=== PATIENT | female | born 1975 ===

== ENCOUNTER → 2018-09-10 13:55 | Outpatient (REF) | payer OTHER, SELFPAY ==
[2018-09-10 14:40] LABS: Free T3, Triiodothyronine Free 2.79 pg/mL (2.77-5.27); Free T4, Direct Thyroxine 1.03 ng/dL (0.78-2.19); T4 Total Thyroxine 7.76 ug/dL (5.5-11.0); T7 (Free Thyroxine Index) 2.81 (1.65-3.89); Triiodothryronine T3 Uptake 36.2 % (23.5-40.5)
== END ==
LOC: LAB 13:55
PROVIDERS: Visit Provider Naturopath
DX: E03.8 Other specified hypothyroidism (principal); R53.83 Other fatigue; L63.8 Other alopecia areata; N94.6 Dysmenorrhea, unspecified
CPT/HCPCS: 36415; 84436; 84439; 84479; 84481